=== PATIENT | male | born 1945 | race Caucasian/White ===

== ENCOUNTER → 2019-10-05 15:28 | Outpatient (BNVA) | payer MEDICARE, OTHER, SELFPAY | PROVIDERS: Family Provider Internal Medicine; PCP Internal Medicine; Visit Provider Internal Medicine | DX: R63.4 Abnormal weight loss (principal); E03.9 Hypothyroidism, unspecified; I95.2 Hypotension due to drugs | CPT/HCPCS: 80053; 84443; 85025; 85651 ==

== ENCOUNTER 2020-03-22 14:04 | Outpatient (CLI) | payer MEDICARE, OTHER, SELFPAY ==
--- NOTE | 2020-03-22 14:21 | MR_ITS ---
WS: [id number] MRI RIGHT SHOULDER NONCONTRAST TECHNIQUE: Sagittal T2, coronal T1, T2 and proton density imaging. Axial gradient PDE imaging. CLINICAL INFORMATION: M25.511 Pain in right shoulder COMPARISON: None. FINDINGS: Degenerative arthritis AC joint with a small amount of edema. Mild downsloping of the acromion with l oss of the subacromial space. Tendinopathy in the distal supraspinatus with chronic thinning. High-gr meenakshi full-thickness/near full-thickness tear involving the supraspinatus with a small amount of tendon retraction. Tear measures approximately 10 mm. Infraspinatus appears intact.Normal teres minor. Chronic high-grade tear with thinning of the subscapularis. Tiny amount of residual tendon. Biceps te ndon is chronically torn with no visualized tendon in the bicipital groove. Medial dislocation of the residual proximal biceps tendon. Degenerative fraying of the glenoid labrum. MR/MR shoulder RT wo con* [id number] IMPRESSION: 1. Moderate degenerative arthritis AC joint with moderate downsloping of the a cromion. Loss of the subacromial space. 2. High-grade full-thickness/near full-thickness tear involving the supraspina tus approximately 2 cm from the insertion. Tendon tear measures approximately 1 0 mm with some retraction. 3. Chronic appearing high-grade tear involving the subscapularis tendon with a tiny amount of residual intact tendon. 4. Biceps tendon absent from the bicipital groove. This is likely chronically torn and atrophic. Residual proximal biceps tendon is dislocated medially. 5. Degenerative fraying of the glenoid labrum. No violeta labral tears.
== END 2020-03-22 14:05 | disposition home or self-care (01) ==
LOC: RADWPI 14:09
PROVIDERS: Family Provider Internal Medicine; PCP Internal Medicine; Visit Provider Internal Medicine
DX: M19.011 Primary osteoarthritis, right shoulder (principal); M75.121 Complete rotator cuff tear or rupture of right shoulder, not specified as traumatic
CPT/HCPCS: 73221

== ENCOUNTER → 2020-04-03 10:02 | Outpatient (BNVA) | payer MEDICARE, OTHER, SELFPAY | PROVIDERS: Family Provider Internal Medicine; PCP Internal Medicine; Referring Provider Internal Medicine; Visit Provider Orthopaedic Surgery | DX: M25.519 Pain in unspecified shoulder (principal) | CPT/HCPCS: 73030 ==

== ENCOUNTER → 2020-10-02 15:59 | Outpatient (BNVA) | payer MEDICARE, OTHER, SELFPAY | PROVIDERS: Family Provider Internal Medicine; PCP Internal Medicine; Visit Provider Internal Medicine | DX: E61.1 Iron deficiency (principal); E78.5 Hyperlipidemia, unspecified; I10 Essential (primary) hypertension; I25.810 Atherosclerosis of coronary artery bypass graft(s) without angina pectoris | CPT/HCPCS: 80053; 80061; 83550; 85025 ==

== ENCOUNTER → 2020-11-06 16:53 | Outpatient (BNVA) | payer MEDICARE, OTHER, SELFPAY | PROVIDERS: Family Provider Internal Medicine; PCP Internal Medicine; Visit Provider Internal Medicine | DX: E61.1 Iron deficiency (principal); I10 Essential (primary) hypertension | CPT/HCPCS: 82270 ==

== ENCOUNTER → 2021-01-21 13:36 | Outpatient (BNVA) | payer MEDICARE, OTHER, SELFPAY | PROVIDERS: Family Provider Internal Medicine; PCP Internal Medicine; Visit Provider Nurse Practitioner Family | DX: J06.9 Acute upper respiratory infection, unspecified (principal); Z20.822 Contact with and (suspected) exposure to COVID-19 | CPT/HCPCS: 87635 ==

== ENCOUNTER 2021-01-24 06:11 | Outpatient (CLI) | payer MEDICARE, OTHER, SELFPAY ==
[2021-01-24 06:36] VITALS: BP 132/73; PULSE 79; RESP 15; O2SAT 97; BMI 29.3
--- NOTE | 2021-01-24 07:07 | AMB.MCA ---
Patient Information Symptom onset date: 01/17/21 COVID 19 common symptoms: positive fever(s), chills, cough, non-productive cough, dyspnea, fatigue and body aches Severity: mild Treatment prior to arrival: acetaminophen [facility] COVID test results: SARS-CoV-2 RNA (RT-PCR) Detected (NOT DETECTED) A 01/21/21 13:36 01/21/21 Criteria/Plan Inclusion/Exclusion Criteria weight >/= 40kg, + direct test </= 10 days ago and symptom onset </= 10 days ago age >/= 65, has immunosuppressive disease and age >/= 55 and has diabetes not requiring hospitalization, not requiring oxygen (if not chronically on oxygen) and no increase oxygen requirement (if chronically on oxygen) Patient education patient/family/caregiver received/reviewed fact sheet, Emergency Use Authorization/unapproved drug status discussed with patient/family/caregiver, alternatives to this treatment discussed with patient/family/caregiver, risks and benefits of medication reviewed with patient/family/caregiver, patient/family/caregiver given opportunity for questions, which were answered and patient consents to receiving Monoclonal Antibody Treatment Plan for treatment Meets criteria for Monoclonal Antibody infusion Ordering Monoclonal Antibody infusion for today
[2021-01-24 08:07] VITALS: BP 138/88; PULSE 72; RESP 16; O2SAT 96
[2021-01-24 08:39] VITALS: BP 123/77; PULSE 71; RESP 18; O2SAT 96
--- NOTE | 2021-01-24 08:40 | NUR.SHIFT ---
Infusion complete. Pt denies any s/s of allergic reaction, vss, breathing even and unlabored. Pt appears comfortable, reading a book between care.
[2021-01-24 09:21] VITALS: BP 112/70; PULSE 75; RESP 16; TEMP 37.1; O2SAT 98
--- NOTE | 2021-01-24 14:19 | DCPLANNER ---
database administration project manager had message that patient received the BAM infusion. database administration project manager called to check on patient after getting the BAM infusion. Patients stated that patient was feeling good. Patients symptoms included a cough, being tired, having a weak stomach. Patients stated that patient is tired, but feeling ok.
== END 2021-01-24 09:22 | disposition home or self-care (01) ==
PROVIDERS: PCP Internal Medicine; Visit Provider Nurse Practitioner Family
DX: U07.1 COVID-19 (principal)

== ENCOUNTER → 2021-03-25 15:14 | Outpatient (BNVA) | payer MEDICARE, OTHER, SELFPAY | PROVIDERS: PCP Internal Medicine; Visit Provider Internal Medicine Cardiovascular Disease | DX: E78.5 Hyperlipidemia, unspecified (principal) | CPT/HCPCS: 80061 ==

== ENCOUNTER → 2021-04-24 11:16 | Outpatient (BNVA) | payer MEDICARE, OTHER, SELFPAY | PROVIDERS: PCP Internal Medicine; Visit Provider Internal Medicine | DX: Z20.822 Contact with and (suspected) exposure to COVID-19 (principal); R11.2 Nausea with vomiting, unspecified | CPT/HCPCS: 87426 ==

== ENCOUNTER 2021-04-26 10:28 | Emergency (ER) | payer MEDICARE, OTHER, SELFPAY ==
[2021-04-26] VITALS (40 sets, daily range): BP systolic 66–120; BP diastolic 43–74; PULSE 51–188; RESP 12–51; TEMP 35.6; O2SAT 18–100; BMI 26.6
--- NOTE | 2021-04-26 | XRR_ITS ---
PROCEDURE INFORMATION: Exam: XR Chest Exam date and time: 04/26/2021 12:00 AM Age: 75 years old Clinical indication: Other vascular access device placement or adjustment; Central line, non-tunnelled; Prior surgery; Surgery type: Cabg; Additional info: Central line placement TECHNIQUE: Imaging protocol: XR of the chest. Views: 1 view. COMPARISON: CR XR chest 1V portable [id number] 04/26/2021 3:43 PM FINDINGS: Tubes, catheters and devices: Interval placement right IJ catheter tip over the mid to distal SVC. Stable enteric tube. Lungs: Unremarkable. No consolidation. Pleural spaces: Unremarkable. No pleural effusion. No pneumothorax. Heart/Mediastinum: Unremarkable. No cardiomegaly. Bones/joints: Stable sternotomy. XR/XR chest 1V portable [id number] IMPRESSION: Interval placement right IJ catheter tip over the mid to distal SVC.
--- NOTE | 2021-04-26 11:57 | ECG_ITS ---
[facility] Test Date: 2021-04-26 Pat Name: Kyle Lr Department: Room: Gender: Male Patient Accounting Representative: : 1945 Requested By: Steffanie Milan I Order Number: [id number] Reading MD: COY MONTANO Measurements Intervals Duarte Rate: 135 P: FL: QRS: 23 QRSD: 100 T: 50 QT: 291 QTc: 437 Interpretive Statements ATRIAL FIBRILLATION WITH RAPID VENTRICULAR RESPONSE WITH ABERRANT CONDUCTION OR VENTRICULAR PREMATURE COMPLEXES ABNORMAL RHYTHM ECG No previous ECG available for comparison Electronically Signed On 04-26-2021 19:26:58 CDT by COY MONTANO [id number]
--- NOTE | 2021-04-26 11:57 | CT_ITS ---
WS: [id number] CT CHEST, ABDOMEN AND PELVIS WITHOUT CONTRAST. HISTORY: abdominal pain, Afib with rvr, ?bowel ischemia TECHNIQUE: Contiguous 5 mm axial imaging performed through the chest, abdomen and pelvis without IV c ontrast, oral contrast has not been provided. Coronal and sagittal reformats chest. Coronal and sagit dominga reformats through the abdomen and pelvis. All CT scans at [facility] use at least one of these dose optimization techniques: automated exposure control; mA and/or kV adjustment per patie nt size (includes targeted exams where dose is matched to clinical indication); or iterative reconstr uction. CONTRAST: None DLP: 2093.93 mGy.cm COMPARISON: 06/21/[address]: Prior CABG. Bilateral areas of subsegmental atelectasis at the lung bases. Multilobar bronc hiectasis. Moderate atherosclerosis aorta. Ascending aorta dilated to 4.2 cm. Normal size pulmonary a rtery. New well-rounded soft tissue mass in the prevascular space measures 2.3 x 3.2 cm. This mass is inseparable from several surgical clips associated with the CABG. Abdomen CT: There is marked distention of the stomach with fluid. Small amount of fluid reflux is int o the distal esophagus. Markedly dilated proximal and mid small bowel loops. Changing caliber of the dilated small bowel loops throughout the lower RIGHT lateral abdominal wall hernia. Herniated bowel l oops around the urostomy site. Multiple small bowel loops herniate through the ostomy site. Some of t hese loops are dilated and some are not dilated. Surgical sutures are noted within nondilated small b owel herniating through the ostomy site. Colon is collapsed. Prior cholecystectomy. Nonenhanced examination of the liver, spleen, adrenal glands and pancreas are negative. Cortical stranding around each kidney with no obstruction. Very slight dilatation of the re nal pelvis which is often seen post urostomy. Multiple low-attenuation masses cannot be further evalu ated. Atherosclerosis aorta with no aneurysm. Induration of the soft tissue in the RIGHT abdomen at the urostomy site and obstruction. Pelvic CT: No free fluid in the pelvis. Prostate elevates are present. Straightening of the normal lumbar lordosis. Advanced degenerative disc disease at L4-5 and L5-S1. CT/CT chest abd pel wo con IMPRESSION: 1. High-grade small bowel obstruction with transition point in the herniated s mall bowel loops into the urostomy. At this time no ischemic changes but there is soft tissue induration and significant small bowel obstruction. 2. Marked distention of the stomach with fluid also with mild reflux into the esophagus. 3. Moderate atherosclerosis aorta. 4. Status post CABG. 5. New well-rounded soft tissue mass in the prevascular space measures 2.3 x 3 .2 cm will need further evaluation. Neoplasm, adenopathy and pseudoaneurysm som uld be considered as possible etiologies. Recommend nonurgent CT of the chest f ollow-up. Notified Steffanie Milan MD MSM at 04/26/2021 2:58 PM.
--- NOTE | 2021-04-26 11:57 | PC.NURSE ---
1137 timeout complete with RN*3, RT *1 and ER physician at bedside. Pt placed on supplemental O2 per NC. Pt given pre-procedure medication. pt given 1 shock 120jules at 1139. pt oxygenation reduced. pt given BMV. ed physician in room during episode. pt BP improved after shock
--- NOTE | 2021-04-26 12:16 | W.ED.ABDPA2 ---
Documented by User: Steffanie Milan MD, [facility] 04/27/21 11:20 HPI - Abdominal Pain General: Chief Complaint: Abdominal Pain Stated Complaint: abdominal pain Time Seen by Provider: 04/26/21 11:29 Source: patient, family () and RN notes reviewed Mode of arrival: ambulatory Limitations: no limitations History of Present Illness: HPI narrative: This is a 75-year-old male who presents to the emergency department with abdominal pain that has been ongoing for about 1 week. He has seen his primary care provider and has not obtained any relief from his management. 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 The patient denies fever, has some nausea but no vomiting. He denies any chest pain. He does have some dizziness. On arrival to the emergency department he was significantly hypotensive with blood pressure in the 60s systolic. He was also noted to be severely tachycardic with heart rate in the 180s and 190s. On the monitor it appeared he was in atrial fibrillation. MD elicited complaint: abdominal pain Onset (ago): week(s) (1) Pain Consistency: constant Location: Diffuse Severity: severe Quality: cramping Radiation: none Exacerbating factors: nothing Relieving factors: nothing Associated Symptoms: Reports bloating, change in stool character, GI cramping and nausea; Denies anorexia, belching, change in bowel habits, chills, coffee ground emesis, constipation, diarrhea, dyspepsia, dysuria, excessive flatus, fever(s), heartburn, hematochezia, hematuria, hematemesis, fecal incontinence, loose stools, melena, poor appetite, syncope and vomiting Review of Systems General: Reports: 10 or more systems reviewed and unremarkable except in HPI and below Const: Denies: fever(s) or chills Card: Denies: syncope GI: Reports: nausea, bloating, GI cramping and change in stool character; Denies: vomiting, hematemesis, coffee ground emesis, heartburn, diarrhea, constipation, belching, excessive flatus, fecal incontinence, change in bowel habits, hematochezia or melena : Denies: dysuria or hematuria PFSH ED PFSH: Medical History (Reviewed 04/27/21 @ 00:53 by Steffanie Milan MD, [facility]) Benign essential HTN Bladder absent CAD (coronary artery disease) of artery bypass graft Dyslipidemia Gall stones Hernia History of nonmelanoma skin cancer Hyperlipemia Prostate cancer SOB (shortness of breath) Surgical History (Reviewed 04/27/21 @ 00:53 by Steffanie Milan MD, [facility]) H/O inguinal hernia repair H/O total cystectomy H/O transurethral resection of prostate History of open heart surgery History of PTCA History of urostomy Hx of cholecystectomy Family History (Reviewed 04/27/21 @ 00:53 by Steffanie Milan MD, [facility]) Father Cancer Brother CAD (coronary artery disease) Other Hypertension Denies family history of Diabetes Clotting disorder Dementia Chronic kidney disease (CKD) Suicide Anesthesia complication Bleeding disorder Lung disease Stroke Social History (Reviewed 04/27/21 @ 00:53 by Steffanie Milan MD, [facility]) Smoking and tobacco status: former smoker Alcohol intake: former History of recent travel: No Current gender identity: Male Physical Exam Const: COMMON NORMALS: average body habitus, patient oriented x3, no limitations, healthy appearing, alert and well nourished GENERAL APPEARANCE: in distress HENMT: COMMON NORMALS: normocephalic, atraumatic and moist oral mucous membranes HEAD & SCALP: normocephalic and atraumatic Eye: COMMON NORMALS: Equal, round and reactive pupils present, EOMs intact bilaterally, conjunctivae normal and no scleral icterus CONJUNCTIVA: Yes conjunctivae normal PUPIL: Yes Equal, round and reactive pupils present Neck/C-Spine: COMMON NORMALS: no meningeal signs and no JVD Resp: COMMON NORMALS: normal respiratory effort, No retractions, No use of accessory muscles, clear to auscultation bilaterally and percussion normal AUSCULTATION: clear to auscultation bilaterally PERCUSSION: percussion normal Cardio: COMMON NORMALS: no JVD, S1 normal heart sound present, S2 normal heart sound present, No gallops present (Cardio), No clicks present (Cardio), No murmurs present (Cardio), No rub (Cardio) and Peripheral pulses 2+ throughout RATE: tachycardic RHYTHM: abnormal rhythm irregularly irregular HEART SOUNDS: S1 normal heart sound present and S2 normal heart sound present PERIPHERAL PULSES: Peripheral pulses 2+ throughout GI: COMMON NORMALS: Normal to inspection, nondistended, normoactive bowel sounds present, Soft to palpation, non-tender, No hepatosplenomegaly present, no masses and no bruits PALPATION: Yes Soft to palpation and Yes No hepatosplenomegaly present Extremity: COMMON NORMALS: normal to inspection, full ROM, capillary refill normal, no calf tenderness and no pedal edema Neuro: COMMON NORMALS: patient oriented x3 SENSORIUM/ORIENTATION: Yes alert MENINGEAL SIGNS: Yes no meningeal signs Skin: COMMON NORMALS: no rashes or lesions noted, no wounds, turgor normal, no jaundice, no petechiae and no mottling GENERAL SKIN EXAM: no rashes or lesions noted and turgor normal Procedures Central Line Placement Right IJ: Time Out Performed: Yes Patient Placed on Monitor/Pulse Ox: Yes MD Prep: mask, gown and gloves Central Line Prep: Chlorhexidine scrub Local Anesthetic: lidocaine 1% Amount of anesthesia used (mL): 3 Ultrasound Used for Placement: Yes Central Line Lumen Inserted: triple Post Procedure: sutured in place, good blood return, all ports aspirated, flushed, capped and sterile dressing applied Post Procedure X-Ray: tip of catheter in good position and no pneumothorax seen Patient Tolerated Procedure: well Complications: none Procedural Sedation Indication: other (Cardioversion) ASA Class: III Preparation: dehydrator operator applied, pulse oximeter, supplemental O2 applied, suction/airway equipment at bedside and IV secured IV Etomidate dose (mg): 5 Patient Tolerated Procedure: well Complications: hypoventilation Interventions: oxygen applied and airway repositioned Course Consultations: Consultation #1: Discussed the patient with Dr. Hendricks, general surgeon, he advised that because of transition point is in the urostomy and given the other medical issues going on with the patient, the patient is too sick for this facility and will need to be transferred for ICU care. Time: 15:16 Consultation #2: Discussed the patient with Dr.Eli Zapien, at [facility]. She will check to see if they have any beds and return a call Time: 16:15 Consultation #3: Discussed the patient with Dr. Zoe Loera, attending anesthesiologist at [facility] in [facility]. She kindly accepted patient to her service. Time: 19:50 Vital Signs: Vital signs: Vital Signs Temperature 97.2 F L 04/27/21 04:00 Pulse Rate 124 H 04/27/21 04:00 Respiratory Rate 21 H 04/27/21 04:00 Blood Pressure 114/66 04/27/21 04:00 Pulse Oximetry 94 04/27/21 04:00 MDM - Abdominal Pain MDM Narrative: Medical decision making narrative: 75-year-old male who presents to the emergency department with significant abdominal pain that has been ongoing for about a week. Evaluation in the emergency department shows that on arrival the patient was hypotensive and significantly tachycardic. Heart rate was in the 180s and 190s on arrival and showed atrial fibrillation with RVR on the monitor and EKG. Because he was unstable he was emergently cardioverted and he was in sinus rhythm briefly and heart rate went down into the 120s. He however gradually had an increase in his heart rates and blood pressure began to drop again. Blood pressure had improved to 120s systolic after cardioversion. He was premedicated with etomidate prior to cardioversion. Blood pressure began to drop again and heart rate was increasing so he was placed on an amiodarone drip as well as a Levophed drip. His heart rate was not well controlled so the Levophed drip was changed to phenylephrine drip following which his heart rates control was better. His troponin was elevated and his 2-hour delta was significantly elevated but I think this is secondary to the stress on his heart from the atrial fibrillation with rapid ventricular response. This is more of a type II than an actual non-STEMI. There are no EKG changes. A nasogastric tube was placed and copious amounts of dark material was suctioned out. The patient was too ill for this facility so the decision was made to transfer the patient, however because of the current pandemic going on there no ICU beds in the state of [place]. We called multiple facilities within [place] and called multiple facilities in several states. He was eventually accepted at [facility] in [facility] and will be transferred to their facility once a bed is available. Throughout his ED stay I updated his and son about the ongoing care and the plan and how sick the patient is. His was in the ED most of the time except for when she went to eat/rest and when she was asked to step out during the central line placement. He is signed out to Dr. Marie to assume care while we wait for a bed and transport. Medical Records: Attestation: I reviewed the patient's medical records. Lab Data: Attestation: I reviewed the patient's lab results. Labs: Lab Results 04/26/21 04/26/21 04/26/21 Range/Units 11:35 11:35 11:35 WBC 7.7 (4.0-10.0) 10^3/ uL RBC 5.48 H (4.1-5.3) 10^6/u L Hgb 16.5 (11.7-16.6) g/dL Hct 50.5 (42.0-52.0) % MCV 92.2 (80-94) fl MCH 30.1 (28.0-34.0) pg MCHC 32.7 (30.0-36.0) g/dL RDW 13.2 (12.1-15.1) % Plt Count 285 (130-400) 10^3/c mm MPV 10.3 (7.4-10.4) fL Lymph % (Auto) Not Reportable [place] % (Auto) Not Reportable Lymph # (Auto) Not Reportable [place] # (Auto) Not Reportable Total Counted 100 (0-100) Atypical Lymphs % 5.0 (0-5) % Absolute Neutrophi ls 6.2 (1.4-6.5) 10^3/c mm Segmented Neutroph ils 60 % Abs Segm Neuts (Ma n) 4.6 (1.6-7.1) 10/cmm Band Neutrophils 20.0 % Abs Band Neuts (Ma n) 1.5 H (0.0-1.2) 10^3/c mm Absolute Lymphocyt es 0.9 L (1.2-3.4) 10^3/c mm Lymphocytes (Manua l) 7 % Monocytes (Manual) 8.0 % Absolute Monocytes 0.6 (0.1-0.6) 10^3/c mm Eosinophils (Manua l) 0 % Absolute Eosinophi ls 0.0 (0.0-0.7) 10^3/c mm Basophils (Manual) 0.0 % Absolute Basophils 0.0 (0.0-0.2) 10^3/c mm Platelet Estimate Normal (Normal) PT 15.00 H (12.1-14.9) SECO NDS INR 1.14 (0.8-1.2) D-Dimer 2.25 H (0-0.59) ug/mIFE U Sodium 132 L (136-145) mmol/L Potassium 4.0 (3.5-5.1) mmol/L Chloride 86 L (98-107) mmol/L Carbon Dioxide 14 L (22-29) mmol/L Anion Gap 36.0 H (5-19) BUN 56 H (8-23) mg/dL Creatinine 3.0 H (0.7-1.2) mg/dL GFR Calculation Not Reportable Glucose 264 H (65-115) mg/dL Calculated Osmolal ity 299 H (285-295) mOsm/k g Lactic Acid (0.5-2.2) mmol/L Lactic Acid (Sepsi s) (0.5-2.2) mmol/L Lactate (0.5-2.2) mmol/L Calcium 8.9 (8.5-10.5) mg/dL Total Bilirubin 2.9 H (0.15-1.2) mg/dL AST 39 (0-40) U/L ALT 65 H (0-41) U/L Alkaline Phosphata se 76 (40-130) IU/L Creatine Kinase 129 (39-308) U/L Troponin T Baselin e (0-15) ng/L Troponin T 120 Min nez perce (0-15) ng/L Delta Troponin T (0-10) ABS# NT-Pro-B Natriuret Pep 2149 H (0-450) pg/mL Total Protein 5.8 L (6.6-8.7) g/dL Albumin 3.8 (3.5-5.2) g/dL Globulin 2.0 (1.3-4.6) g/dL Lipase 14 (13-60) U/L Gastric Occult Blo od (Negative) SARS-CoV-2 Ag (Rap id) (Negative) 04/26/21 04/26/21 04/26/21 Range/Units 11:35 13:34 14:40 WBC (4.0-10.0) 10^3/ uL RBC (4.1-5.3) 10^6/u L Hgb (11.7-16.6) g/dL Hct (42.0-52.0) % MCV (80-94) fl MCH (28.0-34.0) pg MCHC (30.0-36.0) g/dL RDW (12.1-15.1) % Plt Count (130-400) 10^3/c mm MPV (7.4-10.4) fL Lymph % (Auto) [place] % (Auto) Lymph # (Auto) [place] # (Auto) Total Counted (0-100) Atypical Lymphs % (0-5) % Absolute Neutrophi ls (1.4-6.5) 10^3/c mm Segmented Neutroph ils % Abs Segm Neuts (Ma n) (1.6-7.1) 10/cmm Band Neutrophils % Abs Band Neuts (Ma n) (0.0-1.2) 10^3/c mm Absolute Lymphocyt es (1.2-3.4) 10^3/c mm Lymphocytes (Manua l) % Monocytes (Manual) % Absolute Monocytes (0.1-0.6) 10^3/c mm Eosinophils (Manua l) % Absolute Eosinophi ls (0.0-0.7) 10^3/c mm Basophils (Manual) % Absolute Basophils (0.0-0.2) 10^3/c mm Platelet Estimate (Normal) PT (12.1-14.9) SECO NDS INR (0.8-1.2) D-Dimer (0-0.59) ug/mIFE U Sodium (136-145) mmol/L Potassium (3.5-5.1) mmol/L Chloride (98-107) mmol/L Carbon Dioxide (22-29) mmol/L Anion Gap (5-19) BUN (8-23) mg/dL Creatinine (0.7-1.2) mg/dL GFR Calculation Glucose (65-115) mg/dL Calculated Osmolal ity (285-295) mOsm/k g Lactic Acid (0.5-2.2) mmol/L Lactic Acid (Sepsi s) (0.5-2.2) mmol/L Lactate 7.3 H* (0.5-2.2) mmol/L Calcium (8.5-10.5) mg/dL Total Bilirubin (0.15-1.2) mg/dL AST (0-40) U/L ALT (0-41) U/L Alkaline Phosphata se (40-130) IU/L Creatine Kinase (39-308) U/L Troponin T Baselin e 31 H (0-15) ng/L Troponin T 120 Min nez perce 79.62 H (0-15) ng/L Delta Troponin T 48.62 H* (0-10) ABS# NT-Pro-B Natriuret Pep (0-450) pg/mL Total Protein (6.6-8.7) g/dL Albumin (3.5-5.2) g/dL Globulin (1.3-4.6) g/dL Lipase (13-60) U/L Gastric Occult Blo od (Negative) SARS-CoV-2 Ag (Rap id) (Negative) 04/26/21 04/26/21 04/26/21 Range/Units 16:11 17:07 19:06 WBC (4.0-10.0) 10^3/ uL RBC (4.1-5.3) 10^6/u L Hgb (11.7-16.6) g/dL Hct (42.0-52.0) % MCV (80-94) fl MCH (28.0-34.0) pg MCHC (30.0-36.0) g/dL RDW (12.1-15.1) % Plt Count (130-400) 10^3/c mm MPV (7.4-10.4) fL Lymph % (Auto) [place] % (Auto) Lymph # (Auto) [place] # (Auto) Total Counted (0-100) Atypical Lymphs % (0-5) % Absolute Neutrophi ls (1.4-6.5) 10^3/c mm Segmented Neutroph ils % Abs Segm Neuts (Ma n) (1.6-7.1) 10/cmm Band Neutrophils % Abs Band Neuts (Ma n) (0.0-1.2) 10^3/c mm Absolute Lymphocyt es (1.2-3.4) 10^3/c mm Lymphocytes (Manua l) % Monocytes (Manual) % Absolute Monocytes (0.1-0.6) 10^3/c mm Eosinophils (Manua l) % Absolute Eosinophi ls (0.0-0.7) 10^3/c mm Basophils (Manual) % Absolute Basophils (0.0-0.2) 10^3/c mm Platelet Estimate (Normal) PT (12.1-14.9) SECO NDS INR (0.8-1.2) D-Dimer (0-0.59) ug/mIFE U Sodium (136-145) mmol/L Potassium (3.5-5.1) mmol/L Chloride (98-107) mmol/L Carbon Dioxide (22-29) mmol/L Anion Gap (5-19) BUN (8-23) mg/dL Creatinine (0.7-1.2) mg/dL GFR Calculation Glucose (65-115) mg/dL Calculated Osmolal ity (285-295) mOsm/k g Lactic Acid 7.1 H* (0.5-2.2) mmol/L Lactic Acid (Sepsi s) 4.9 H* (0.5-2.2) mmol/L Lactate (0.5-2.2) mmol/L Calcium (8.5-10.5) mg/dL Total Bilirubin (0.15-1.2) mg/dL AST (0-40) U/L ALT (0-41) U/L Alkaline Phosphata se (40-130) IU/L Creatine Kinase (39-308) U/L Troponin T Baselin e (0-15) ng/L Troponin T 120 Min nez perce (0-15) ng/L Delta Troponin T (0-10) ABS# NT-Pro-B Natriuret Pep (0-450) pg/mL Total Protein (6.6-8.7) g/dL Albumin (3.5-5.2) g/dL Globulin (1.3-4.6) g/dL Lipase (13-60) U/L Gastric Occult Blo od Positive H (Negative) SARS-CoV-2 Ag (Rap id) (Negative) 04/26/21 Range/Units 21:57 WBC (4.0-10.0) 10^3/ uL RBC (4.1-5.3) 10^6/u L Hgb (11.7-16.6) g/dL Hct (42.0-52.0) % MCV (80-94) fl MCH (28.0-34.0) pg MCHC (30.0-36.0) g/dL RDW (12.1-15.1) % Plt Count (130-400) 10^3/c mm MPV (7.4-10.4) fL Lymph % (Auto) [place] % (Auto) Lymph # (Auto) [place] # (Auto) Total Counted (0-100) Atypical Lymphs % (0-5) % Absolute Neutrophi ls (1.4-6.5) 10^3/c mm Segmented Neutroph ils % Abs Segm Neuts (Ma n) (1.6-7.1) 10/cmm Band Neutrophils % Abs Band Neuts (Ma n) (0.0-1.2) 10^3/c mm Absolute Lymphocyt es (1.2-3.4) 10^3/c mm Lymphocytes (Manua l) % Monocytes (Manual) % Absolute Monocytes (0.1-0.6) 10^3/c mm Eosinophils (Manua l) % Absolute Eosinophi ls (0.0-0.7) 10^3/c mm Basophils (Manual) % Absolute Basophils (0.0-0.2) 10^3/c mm Platelet Estimate (Normal) PT (12.1-14.9) SECO NDS INR (0.8-1.2) D-Dimer (0-0.59) ug/mIFE U Sodium (136-145) mmol/L Potassium (3.5-5.1) mmol/L Chloride (98-107) mmol/L Carbon Dioxide (22-29) mmol/L Anion Gap (5-19) BUN (8-23) mg/dL Creatinine (0.7-1.2) mg/dL GFR Calculation Glucose (65-115) mg/dL Calculated Osmolal ity (285-295) mOsm/k g Lactic Acid (0.5-2.2) mmol/L Lactic Acid (Sepsi s) (0.5-2.2) mmol/L Lactate (0.5-2.2) mmol/L Calcium (8.5-10.5) mg/dL Total Bilirubin (0.15-1.2) mg/dL AST (0-40) U/L ALT (0-41) U/L Alkaline Phosphata se (40-130) IU/L Creatine Kinase (39-308) U/L Troponin T Baselin e (0-15) ng/L Troponin T 120 Min nez perce (0-15) ng/L Delta Troponin T (0-10) ABS# NT-Pro-B Natriuret Pep (0-450) pg/mL Total Protein (6.6-8.7) g/dL Albumin (3.5-5.2) g/dL Globulin (1.3-4.6) g/dL Lipase (13-60) U/L Gastric Occult Blo od (Negative) SARS-CoV-2 Ag (Rap id) Negative (Negative) Imaging Data ^: CXR: Attestation: I personally reviewed and interpreted this imaging study as follows: Radiologist's impression: [address] [id number] ReportSigned Patient: Kyle Lr #: [id number]: 5Acct#:[id number]/Sex: 75 / MADM Date: 04/26/21Loc: [facility]/Bed:Attending Dr: Ordering Provider/Ordering MD: Steffanie Milan MD, [facility] Date of Service: 04/26/21 Procedure(s): XR chest 1V portable [id number] Accession Number(s): [id number] Report Number: [id number] WS: [id number] Portable AP upright chest, 04/26/2021 Clinical Data: ng tube insertion Comparison: PA and lateral chest, 03/17/2016. Findings: The nasogastric tube is curled in the stomach. The heart is normal. Midline sternotomy sutures are seen along with mediastinal clips. No pneumonia or pneumothorax is present. There is a resuscitation paddle and monitor leads on the chest wall. The small bowel loops are dilated. XR/XR chest 1V portable [id number] Impression: Satisfactory insertion of nasogastric tube. Dictated By:Gaviota Rodriguez MDSigned By:Gaviota Rodriguez MDSigned Date/Time:04/26/21 1558DD/ [address] [id number] ReportSigned Patient: Kyle rL #: [id number]: 5Acct#:[id number]/Sex: 75 / MADM Date: 04/26/21Loc: [facility]/Bed:Attending Dr: Ordering Provider/Ordering MD: Steffanie Milan MD, [facility] Date of Service: 04/26/21 Procedure(s): XR chest 1V portable [id number] Accession Number(s): [id number] Report Number: [id number] PROCEDURE INFORMATION: Exam: XR Chest Exam date and time: 04/26/2021 12:00 AM Age: 75 years old Clinical indication: Other vascular access device placement or adjustment; Central line, non-tunnelled; Prior surgery; Surgery type: Cabg; Additional info: Central line placement TECHNIQUE: Imaging protocol: XR of the chest. Views: 1 view. COMPARISON: CR XR chest 1V portable [id number] 04/26/2021 3:43 PM FINDINGS: Tubes, catheters and devices: Interval placement right IJ catheter tip over the mid to distal SVC. Stable enteric tube. Lungs: Unremarkable. No consolidation. Pleural spaces: Unremarkable. No pleural effusion. No pneumothorax. Heart/Mediastinum: Unremarkable. No cardiomegaly. Bones/joints: Stable sternotomy. XR/XR chest 1V portable [id number] IMPRESSION: Interval placement right IJ catheter tip over the mid to distal SVC. Dictated By:Garret oPrter MDSigned By:Garret Porter MDSigned Date/Time:04/26/211848DD/ 46 CT Abd/Pel: Attestation: I personally reviewed and interpreted this imaging study as follows: Radiologist's impression: [address] [id number] Scan ReportSigned Patient: Kyle Lr #: [id number]: 5Acct#:[id number]/Sex: 75 / MADM Date: 04/26/21Loc: [facility]/Bed:Attending Dr: Ordering Provider/Ordering MD: Steffanie Milan MD, [facility] Date of Service: 04/26/21 Procedure(s): CT chest abd pel wo con Accession Number(s): [id number] Report Number: [id number] WS: [id number] CT CHEST, ABDOMEN AND PELVIS WITHOUT CONTRAST. HISTORY: abdominal pain, Afib with rvr, ?bowel ischemia TECHNIQUE: Contiguous 5 mm axial imaging performed through the chest, abdomen and pelvis without IV contrast, oral contrast has not been provided. Coronal and sagittal reformats chest. Coronal and sagittal reformats through the abdomen and pelvis. All CT scans at [facility] use at least one of these dose optimization techniques: automated exposure control; mA and/or kV adjustment per patient size (includes targeted exams where dose is matched to clinical indication); or iterative reconstruction. CONTRAST: None DLP: 2093.93 mGy.cm COMPARISON: 06/21/[address]: Prior CABG. Bilateral areas of subsegmental atelectasis at the lung bases. Multilobar bronchiectasis. Moderate atherosclerosis aorta. Ascending aorta dilated to 4.2 cm. Normal size pulmonary artery. New well-rounded soft tissue mass in the prevascular space measures 2.3 x 3.2 cm. This mass is inseparable from several surgical clips associated with the CABG. Abdomen CT: There is marked distention of the stomach with fluid. Small amount of fluid reflux is into the distal esophagus. Markedly dilated proximal and mid small bowel loops. Changing caliber of the dilated small bowel loops throughout the lower RIGHT lateral abdominal wall hernia. Herniated bowel loops around the urostomy site. Multiple small bowel loops herniate through the ostomy site. Some of these loops are dilated and some are not dilated. Surgical sutures are noted within nondilated small bowel herniating through the ostomy site. Colon is collapsed. Prior cholecystectomy. Nonenhanced examination of the liver, spleen, adrenal glands and pancreas are negative. Cortical stranding around each kidney with no obstruction. Very slight dilatation of the renal pelvis which is often seen post urostomy. Multiple low-attenuation masses cannot be further evaluated. Atherosclerosis aorta with no aneurysm. Induration of the soft tissue in the RIGHT abdomen at the urostomy site and obstruction. Pelvic CT: No free fluid in the pelvis. Prostate elevates are present. Straightening of the normal lumbar lordosis. Advanced degenerative disc disease at L4-5 and L5-S1. CT/CT chest abd pel wo con IMPRESSION: 1. High-grade small bowel obstruction with transition point in the herniated small bowel loops into the urostomy. At this time no ischemic changes but there is soft tissue induration and significant small bowel obstruction. 2. Marked distention of the stomach with fluid also with mild reflux into the esophagus. 3. Moderate atherosclerosis aorta. 4. Status post CABG. 5. New well-rounded soft tissue mass in the prevascular space measures 2.3 x 3.2 cm will need further evaluation. Neoplasm, adenopathy and pseudoaneurysm should be considered as possible etiologies. Recommend nonurgent CT of the chest follow-up. Notified Steffanie Milan MD MSM at 04/26/2021 2:58 PM. Dictated By:Tuyet Noland DOSigned By:Tuyet Noland DOSigned Date/Time:04/26/21 1501DD/ 1446 EKG Data ^: EKG 1: Attestation: I personally reviewed and interpreted this EKG as follows: EKG interpretation date: 04/26/21 EKG interpretation time: 11:31 Prior EKG tracings: not available for review Interpretation: Atrial fibrillation with rapid ventricular response. Heart rate [address] depression in leads V2 through V5. EKG 2: Attestation: I personally reviewed and interpreted this EKG as follows: EKG interpretation date: 04/26/21 EKG interpretation time: 11:46 Prior EKG tracings: available for review Interpretation: Atrial fibrillation with rapid ventricular response. Heart rate [address] depression in leads V3 through V5. No significant change from earlier other than the heart rate is improving EKG 3: Attestation: I personally reviewed and interpreted this EKG as follows: EKG interpretation date: 04/26/21 EKG interpretation time: 14:25 Prior EKG tracings: available for review Interpretation: Atrial fibrillation with rapid ventricular response. Heart rate [address] depression has resolved. EKG 4: Attestation: I personally reviewed and interpreted this EKG as follows: EKG interpretation date: 04/26/21 EKG interpretation time: 19:29 Prior EKG tracings: available for review Interpretation: Sinus tachycardia. Heart rate [address] changes. Critical Care Time Critical Care Time: Critical Care Time: Yes Total Critical Care Time: 90 Attestation: This case had a high probability of a clinically significant, sudden, or life threatening deterioration of this patient's condition which required my full and direct attention, intervention and personal management. Discharge Plan Discharge Patient Disposition: Xfer Short-Term Hosp Clinical Impression: SBO (small bowel obstruction), Atrial fibrillation with rapid ventricular response, Septic shock, Elevated troponin Condition: Stable Referrals: Fei Graham MD [Primary Care Provider] - Coding Level of Care Code ED Abstracter for Chg Fwd Exam Comprehensive Documented by User: Juan Marie DO 04/27/21 03:32 HPI - Abdominal Pain General: Chief Complaint: Abdominal Pain Stated Complaint: abdominal pain Time Seen by Provider: 04/26/21 11:29 PFSH ED PFSH: Medical History (Reviewed 04/27/21 @ 00:53 by Steffanie Milan MD, [facility]) Benign essential HTN Bladder absent CAD (coronary artery disease) of artery bypass graft Dyslipidemia Gall stones Hernia History of nonmelanoma skin cancer Hyperlipemia Prostate cancer SOB (shortness of breath) Surgical History (Reviewed 04/27/21 @ 00:53 by Steffanie Milan MD, [facility]) H/O inguinal hernia repair H/O total cystectomy H/O transurethral resection of prostate History of open heart surgery History of PTCA History of urostomy Hx of cholecystectomy Family History (Reviewed 04/27/21 @ 00:53 by Steffanie Milan MD, [facility]) Father Cancer Brother CAD (coronary artery disease) Other Hypertension Denies family history of Diabetes Clotting disorder Dementia Chronic kidney disease (CKD) Suicide Anesthesia complication Bleeding disorder Lung disease Stroke Social History (Reviewed 04/27/21 @ 00:53 by Steffanie Milan MD, [facility]) Smoking and tobacco status: former smoker Alcohol intake: former History of recent travel: No Current gender identity: Male Course Vital Signs: Vital signs: Vital Signs Temperature 97.2 F L 04/27/21 04:00 Pulse Rate 124 H 04/27/21 04:00 Respiratory Rate 21 H 04/27/21 04:00 Blood Pressure 114/66 04/27/21 04:00 Pulse Oximetry 94 04/27/21 04:00 MDM - Abdominal Pain MDM Narrative: Medical decision making narrative: 85-year-old male checked out to me by Dr. Milan at shift change. Bed was found for this patient in [facility]. Air transport is here for the patient at this time. He remains on pressors, with a good blood pressure. Current vitals are sinus tach 110, blood pressure 119/73. Saturations 93%. He is on phenylephrine, and norepinephrine drips. Lab Data: Labs: Lab Results 04/26/21 04/26/21 04/26/21 Range/Units 11:35 11:35 11:35 WBC 7.7 (4.0-10.0) 10^3/ uL RBC 5.48 H (4.1-5.3) 10^6/u L Hgb 16.5 (11.7-16.6) g/dL Hct 50.5 (42.0-52.0) % MCV 92.2 (80-94) fl MCH 30.1 (28.0-34.0) pg MCHC 32.7 (30.0-36.0) g/dL RDW 13.2 (12.1-15.1) % Plt Count 285 (130-400) 10^3/c mm MPV 10.3 (7.4-10.4) fL Lymph % (Auto) Not Reportable [place] % (Auto) Not Reportable Lymph # (Auto) Not Reportable [place] # (Auto) Not Reportable Total Counted 100 (0-100) Atypical Lymphs % 5.0 (0-5) % Absolute Neutrophi ls 6.2 (1.4-6.5) 10^3/c mm Segmented Neutroph ils 60 % Abs Segm Neuts (Ma n) 4.6 (1.6-7.1) 10/cmm Band Neutrophils 20.0 % Abs Band Neuts (Ma n) 1.5 H (0.0-1.2) 10^3/c mm Absolute Lymphocyt es 0.9 L (1.2-3.4) 10^3/c mm Lymphocytes (Manua l) 7 % Monocytes (Manual) 8.0 % Absolute Monocytes 0.6 (0.1-0.6) 10^3/c mm Eosinophils (Manua l) 0 % Absolute Eosinophi ls 0.0 (0.0-0.7) 10^3/c mm Basophils (Manual) 0.0 % Absolute Basophils 0.0 (0.0-0.2) 10^3/c mm Platelet Estimate Normal (Normal) PT 15.00 H (12.1-14.9) SECO NDS INR 1.14 (0.8-1.2) D-Dimer 2.25 H (0-0.59) ug/mIFE U Sodium 132 L (136-145) mmol/L Potassium 4.0 (3.5-5.1) mmol/L Chloride 86 L (98-107) mmol/L Carbon Dioxide 14 L (22-29) mmol/L Anion Gap 36.0 H (5-19) BUN 56 H (8-23) mg/dL Creatinine 3.0 H (0.7-1.2) mg/dL GFR Calculation Not Reportable Glucose 264 H (65-115) mg/dL Calculated Osmolal ity 299 H (285-295) mOsm/k g Lactic Acid (0.5-2.2) mmol/L Lactic Acid (Sepsi s) (0.5-2.2) mmol/L Lactate (0.5-2.2) mmol/L Calcium 8.9 (8.5-10.5) mg/dL Total Bilirubin 2.9 H (0.15-1.2) mg/dL AST 39 (0-40) U/L ALT 65 H (0-41) U/L Alkaline Phosphata se 76 (40-130) IU/L Creatine Kinase 129 (39-308) U/L Troponin T Baselin e (0-15) ng/L Troponin T 120 Min nez perce (0-15) ng/L Delta Troponin T (0-10) ABS# NT-Pro-B Natriuret Pep 2149 H (0-450) pg/mL Total Protein 5.8 L (6.6-8.7) g/dL Albumin 3.8 (3.5-5.2) g/dL Globulin 2.0 (1.3-4.6) g/dL Lipase 14 (13-60) U/L Gastric Occult Blo od (Negative) SARS-CoV-2 Ag (Rap id) (Negative) 04/26/21 04/26/21 04/26/21 Range/Units 11:35 13:34 14:40 WBC (4.0-10.0) 10^3/ uL RBC (4.1-5.3) 10^6/u L Hgb (11.7-16.6) g/dL Hct (42.0-52.0) % MCV (80-94) fl MCH (28.0-34.0) pg MCHC (30.0-36.0) g/dL RDW (12.1-15.1) % Plt Count (130-400) 10^3/c mm MPV (7.4-10.4) fL Lymph % (Auto) [place] % (Auto) Lymph # (Auto) [place] # (Auto) Total Counted (0-100) Atypical Lymphs % (0-5) % Absolute Neutrophi ls (1.4-6.5) 10^3/c mm Segmented Neutroph ils % Abs Segm Neuts (Ma n) (1.6-7.1) 10/cmm Band Neutrophils % Abs Band Neuts (Ma n) (0.0-1.2) 10^3/c mm Absolute Lymphocyt es (1.2-3.4) 10^3/c mm Lymphocytes (Manua l) % Monocytes (Manual) % Absolute Monocytes (0.1-0.6) 10^3/c mm Eosinophils (Manua l) % Absolute Eosinophi ls (0.0-0.7) 10^3/c mm Basophils (Manual) % Absolute Basophils (0.0-0.2) 10^3/c mm Platelet Estimate (Normal) PT (12.1-14.9) SECO NDS INR (0.8-1.2) D-Dimer (0-0.59) ug/mIFE U Sodium (136-145) mmol/L Potassium (3.5-5.1) mmol/L Chloride (98-107) mmol/L Carbon Dioxide (22-29) mmol/L Anion Gap (5-19) BUN (8-23) mg/dL Creatinine (0.7-1.2) mg/dL GFR Calculation Glucose (65-115) mg/dL Calculated Osmolal ity (285-295) mOsm/k g Lactic Acid (0.5-2.2) mmol/L Lactic Acid (Sepsi s) (0.5-2.2) mmol/L Lactate 7.3 H* (0.5-2.2) mmol/L Calcium (8.5-10.5) mg/dL Total Bilirubin (0.15-1.2) mg/dL AST (0-40) U/L ALT (0-41) U/L Alkaline Phosphata se (40-130) IU/L Creatine Kinase (39-308) U/L Troponin T Baselin e 31 H (0-15) ng/L Troponin T 120 Min nez perce 79.62 H (0-15) ng/L Delta Troponin T 48.62 H* (0-10) ABS# NT-Pro-B Natriuret Pep (0-450) pg/mL Total Protein (6.6-8.7) g/dL Albumin (3.5-5.2) g/dL Globulin (1.3-4.6) g/dL Lipase (13-60) U/L Gastric Occult Blo od (Negative) SARS-CoV-2 Ag (Rap id) (Negative) 04/26/21 04/26/21 04/26/21 Range/Units 16:11 17:07 19:06 WBC (4.0-10.0) 10^3/ uL RBC (4.1-5.3) 10^6/u L Hgb (11.7-16.6) g/dL Hct (42.0-52.0) % MCV (80-94) fl MCH (28.0-34.0) pg MCHC (30.0-36.0) g/dL RDW (12.1-15.1) % Plt Count (130-400) 10^3/c mm MPV (7.4-10.4) fL Lymph % (Auto) [place] % (Auto) Lymph # (Auto) [place] # (Auto) Total Counted (0-100) Atypical Lymphs % (0-5) % Absolute Neutrophi ls (1.4-6.5) 10^3/c mm Segmented Neutroph ils % Abs Segm Neuts (Ma n) (1.6-7.1) 10/cmm Band Neutrophils % Abs Band Neuts (Ma n) (0.0-1.2) 10^3/c mm Absolute Lymphocyt es (1.2-3.4) 10^3/c mm Lymphocytes (Manua l) % Monocytes (Manual) % Absolute Monocytes (0.1-0.6) 10^3/c mm Eosinophils (Manua l) % Absolute Eosinophi ls (0.0-0.7) 10^3/c mm Basophils (Manual) % Absolute Basophils (0.0-0.2) 10^3/c mm Platelet Estimate (Normal) PT (12.1-14.9) SECO NDS INR (0.8-1.2) D-Dimer (0-0.59) ug/mIFE U Sodium (136-145) mmol/L Potassium (3.5-5.1) mmol/L Chloride (98-107) mmol/L Carbon Dioxide (22-29) mmol/L Anion Gap (5-19) BUN (8-23) mg/dL Creatinine (0.7-1.2) mg/dL GFR Calculation Glucose (65-115) mg/dL Calculated Osmolal ity (285-295) mOsm/k g Lactic Acid 7.1 H* (0.5-2.2) mmol/L Lactic Acid (Sepsi s) 4.9 H* (0.5-2.2) mmol/L Lactate (0.5-2.2) mmol/L Calcium (8.5-10.5) mg/dL Total Bilirubin (0.15-1.2) mg/dL AST (0-40) U/L ALT (0-41) U/L Alkaline Phosphata se (40-130) IU/L Creatine Kinase (39-308) U/L Troponin T Baselin e (0-15) ng/L Troponin T 120 Min nez perce (0-15) ng/L Delta Troponin T (0-10) ABS# NT-Pro-B Natriuret Pep (0-450) pg/mL Total Protein (6.6-8.7) g/dL Albumin (3.5-5.2) g/dL Globulin (1.3-4.6) g/dL Lipase (13-60) U/L Gastric Occult Blo od Positive H (Negative) SARS-CoV-2 Ag (Rap id) (Negative) 04/26/21 Range/Units 21:57 WBC (4.0-10.0) 10^3/ uL RBC (4.1-5.3) 10^6/u L Hgb (11.7-16.6) g/dL Hct (42.0-52.0) % MCV (80-94) fl MCH (28.0-34.0) pg MCHC (30.0-36.0) g/dL RDW (12.1-15.1) % Plt Count (130-400) 10^3/c mm MPV (7.4-10.4) fL Lymph % (Auto) [place] % (Auto) Lymph # (Auto) [place] # (Auto) Total Counted (0-100) Atypical Lymphs % (0-5) % Absolute Neutrophi ls (1.4-6.5) 10^3/c mm Segmented Neutroph ils % Abs Segm Neuts (Ma n) (1.6-7.1) 10/cmm Band Neutrophils % Abs Band Neuts (Ma n) (0.0-1.2) 10^3/c mm Absolute Lymphocyt es (1.2-3.4) 10^3/c mm Lymphocytes (Manua l) % Monocytes (Manual) % Absolute Monocytes (0.1-0.6) 10^3/c mm Eosinophils (Manua l) % Absolute Eosinophi ls (0.0-0.7) 10^3/c mm Basophils (Manual) % Absolute Basophils (0.0-0.2) 10^3/c mm Platelet Estimate (Normal) PT (12.1-14.9) SECO NDS INR (0.8-1.2) D-Dimer (0-0.59) ug/mIFE U Sodium (136-145) mmol/L Potassium (3.5-5.1) mmol/L Chloride (98-107) mmol/L Carbon Dioxide (22-29) mmol/L Anion Gap (5-19) BUN (8-23) mg/dL Creatinine (0.7-1.2) mg/dL GFR Calculation Glucose (65-115) mg/dL Calculated Osmolal ity (285-295) mOsm/k g Lactic Acid (0.5-2.2) mmol/L Lactic Acid (Sepsi s) (0.5-2.2) mmol/L Lactate (0.5-2.2) mmol/L Calcium (8.5-10.5) mg/dL Total Bilirubin (0.15-1.2) mg/dL AST (0-40) U/L ALT (0-41) U/L Alkaline Phosphata se (40-130) IU/L Creatine Kinase (39-308) U/L Troponin T Baselin e (0-15) ng/L Troponin T 120 Min nez perce (0-15) ng/L Delta Troponin T (0-10) ABS# NT-Pro-B Natriuret Pep (0-450) pg/mL Total Protein (6.6-8.7) g/dL Albumin (3.5-5.2) g/dL Globulin (1.3-4.6) g/dL Lipase (13-60) U/L Gastric Occult Blo od (Negative) SARS-CoV-2 Ag (Rap id) Negative (Negative) Discharge Plan Discharge Patient Disposition: Xfer Short-Term Hosp Clinical Impression: SBO (small bowel obstruction), Atrial fibrillation with rapid ventricular response, Septic shock, Elevated troponin Condition: Stable Referrals: Fei Graham MD [Primary Care Provider] - Coding Level of Care Code ED Abstracter for Addyg Fwd Exam Comprehensive
[2021-04-26] MEDS: ondansetron 2 mg/ML SDV 2 mL 4 MG IVP (12:29)
[2021-04-26 12:32] LABS: Hematocrit 50.5 % (42.0-52.0); Hemoglobin 16.5 g/dL (11.7-16.6); Mean Corpuscular HGB Conc 32.7 g/dL (30.0-36.0); Mean Corpuscular Hemoglobin 30.1 pg (28.0-34.0); Mean Corpuscular Volume 92.2 fl (80-94); Mean Platelet Volume 10.3 fL (7.4-10.4); Platelet Count 285 10^3/cmm (130-400); Red Blood Count 5.48 10^6/uL (4.1-5.3); Red Cell Distribution Width 13.2 % (12.1-15.1); White Blood Count 7.7 10^3/uL (4.0-10.0)
[2021-04-26] MEDS: sodium chloride 0.9% 1,000 ML 999 ML IV (12:35)
[2021-04-26 12:47] LABS: INR 1.14 (0.8-1.2)
[2021-04-26 12:50] LABS: D Dimer 2.25 ug/mIFEU (0-0.59)
[2021-04-26 12:58] LABS: Troponin(5th) Baseline 31 ng/L (0-15)
[2021-04-26 13:07] LABS: Alanine Aminotransferase 65 U/L (0-41); Albumin Level 3.8 g/dL (3.5-5.2); Alkaline Phosphatase 76 IU/L (40-130); Aspartate Amino Transferase 39 U/L (0-40); Blood Urea Nitrogen 56 mg/dL (8-23); Calcium 8.9 mg/dL (8.5-10.5); Carbon Dioxide 14 mmol/L (22-29); Chloride 86 mmol/L (98-107); Creatine Phosphokinase 129 U/L (39-308); Glucose 264 mg/dL (65-115); Lipase 14 U/L (13-60); NT Pro B Type Natriuretic Pept 2149 pg/mL (0-450); Osmolality Calculated 299 mOsm/kg (285-295); Sodium 132 mmol/L (136-145); Total Bilirubin 2.9 mg/dL (0.15-1.2); Total Protein 5.8 g/dL (6.6-8.7)
[2021-04-26 13:27] LABS: Slide Review Slide Review Perform
[2021-04-26 13:30] LABS: Absolute Segmented Neutrophil 4.6 10/cmm (1.6-7.1); Band Neutrophils Absolute 1.5 10^3/cmm (0.0-1.2); Eosinophils 0 %; Lymphocytes 7 %; Lymphocytes Absolute 0.9 10^3/cmm (1.2-3.4); Monocytes Absolute 0.6 10^3/cmm (0.1-0.6); Segmented Neutrophils 60 %; Total Cells Counted 100 (0-100)
[2021-04-26 13:31] LABS: Absolute Neutrophil 6.2 10^3/cmm (1.4-6.5); Platelet Estimate Normal (Normal)
--- NOTE | 2021-04-26 13:57 | ECG_ITS ---
[facility] Test Date: 2021-04-26 Pat Name: Kyle Lr Department: Room: Gender: Male End User Support Specialist: : 1945 Requested By: Steffanie Milan I Order Number: [id number] Reading MD: COY MONTANO Measurements Intervals [place] Rate: 174 P: [place]: QRS: 52 QRSD: 92 T: 57 QT: 251 QTc: 427 Interpretive Statements ATRIAL FIBRILLATION WITH RAPID VENTRICULAR RESPONSE ST DEPRESSION, CONSIDER SUBENDOCARDIAL INJURY [0.1+ mV ST DEPRESSION] CRITICAL TEST RESULT INTERPRETATION BASED ON A DEFAULT AGE OF 40 YEARS No previous ECG available for comparison Electronically Signed On 04-26-2021 19:27:37 CDT by COY MONTANO [id number] f
[2021-04-26 14:13] LABS: Troponin 5 2HR 79.62 ng/L (0-15)
[2021-04-26 14:23] LABS: Troponin 5 2HR Delta 48.62 ABS# (0-10)
[2021-04-26 15:15] LABS: Lactate (Lactic Acid level) 7.3 mmol/L (0.5-2.2)
--- NOTE | 2021-04-26 15:44 | XR_ITS ---
WS: [id number] Portable AP upright chest, 04/26/2021 Clinical Data: ng tube insertion Comparison: PA and lateral chest, 03/17/2016. Findings: The nasogastric tube is curled in the stomach. The heart is normal. Midline sternotomy sutu res are seen along with mediastinal clips. No pneumonia or pneumothorax is present. There is a resusc itation paddle and monitor leads on the chest wall. The small bowel loops are dilated. XR/XR chest 1V portable [id number] Impression: Satisfactory insertion of nasogastric tube.
[2021-04-26] MEDS: phenylephrine inj 25 MG in sodium chloride 0.9% 250 ML 24.24 MG IV (15:51)
[2021-04-26 16:25] LABS: Gastricult Occult Blood Positive (Negative)
[2021-04-26 17:54] LABS: Lactic Sepsis W/Reflex 7.1 mmol/L (0.5-2.2)
--- NOTE | 2021-04-26 17:57 | ECG_ITS ---
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 Measurements Intervals [place] Rate: 117 P: 42 ID: [id number] QRS: 5 QRSD: 85 T: 31 QT: 313 QTc: 437 Interpretive Statements SINUS TACHYCARDIA WITH OCCASIONAL VENTRICULAR PREMATURE COMPLEXES ABNORMAL RHYTHM ECG Compared to ECG 04/26/2021 14:24:19 Atrial fibrillation no longer present Aberrant conduction of supraventricular beat(s) no longer present Electronically Signed On 04-28-2021 16:31:49 CDT by Kala Silverman M.D. [id number] f
[2021-04-26] MEDS: morphine 4 mg/mL SDV 1 mL IVP (18:42)
[2021-04-26 19:01] LABS: Reflex Lactate Order REFLEX LACTIC ORDERD
[2021-04-26 19:37] LABS: Lactic Acid level (Lactate) 4.9 mmol/L (0.5-2.2)
[2021-04-26] MEDS: cefepime 2,000 MG in sodium chloride 0.9% (plus) 50 ML 100 MG IV (20:36)
[2021-04-26] MEDS: phenylephrine inj 25 MG in sodium chloride 0.9% 250 ML 27.27 MG IV (20:40)
--- NOTE | 2021-04-26 20:48 | PC.NURSE ---
Family back at bedside, updated on plan of care. I let them know that per our sr community manager the only place with ICU bed was [facility] and we were looking at poss air transfer there. Son verbalizes understanding. I let them know I would keep them updated. At this time patient is very touch and go, but stable on current IV medications.
[2021-04-26] MEDS: fentaNYL 50 mcg/mL INJ 2mL 25 MCG IVP ×2 (21:20→22:50)
--- NOTE | 2021-04-26 21:26 | PC.NURSE ---
at bedside; Dr. Black updating her and family on plan of care. They are in agreement for transfer for [facility].
[2021-04-26] MEDS: sodium chloride 0.9% 500 ML IV (21:43)
--- NOTE | 2021-04-26 21:56 | PC.NURSE ---
COVID SWAB OBTAIN
[2021-04-26 22:34] LABS: SARS Covid-2 Antigen Negative (Negative)
[2021-04-27] VITALS (25 sets, daily range): BP systolic 86–134; BP diastolic 49–83; PULSE 108–125; RESP 18–42; TEMP 36.2; O2SAT 19–100
[2021-04-27] MEDS: metoclopramide 5 mg/mL SDV 2 mL 10 MG IVP (00:51)
[2021-04-27] MEDS: fentaNYL 50 mcg/mL INJ 2mL 25 MCG IVP (02:10)
== END 2021-04-27 04:00 | disposition short-term general hospital (02) ==
PROVIDERS: Emergency Provider Family Medicine; PCP Internal Medicine
DX: K56.609 Unspecified intestinal obstruction, unspecified as to partial versus complete obstruction (principal); I48.91 Unspecified atrial fibrillation; A41.9 Sepsis, unspecified organism; R65.21 Severe sepsis with septic shock; R77.8 Other specified abnormalities of plasma proteins; I10 Essential (primary) hypertension; I25.10 Atherosclerotic heart disease of native coronary artery without angina pectoris; E78.5 Hyperlipidemia, unspecified; Z85.46 Personal history of malignant neoplasm of prostate; Z92.3 Personal history of irradiation; Z87.891 Personal history of nicotine dependence; Z95.1 Presence of aortocoronary bypass graft; Z93.6 Other artificial openings of urinary tract status
CPT/HCPCS: 36556; 71045; 71250; 74176; 80053; 82271; 82550; 83605; 83690; 83880; 84484; 85007; 85025; 85378; 85610; 87426; 93005; 96365; 96366; 96367; 96375; 96376; 99291; 99292; J0282; J0692; J2270; J2370; J2405; J2765; J3010; J3490; J7030; J7040; J7050; J7060